=== PATIENT | female | born 1950 | race Caucasian/White ===

== ENCOUNTER 2016-08-22 06:28 | Day surgery (SDC) | payer MEDICARE, OTHER ==
[2016-08-22] VITALS (15 sets, daily range): BP systolic 129–179; BP diastolic 47–99; PULSE 66–83; TEMP 97.8–98.8
[~2016-08-22] VITALS: Ht 162.7 cm; Wt 73.5 kg
[2016-08-22 07:05] LABS: HEMATOCRIT 42.1 % (37.0-47.0); HEMOGLOBIN 13.8 g/dl (12.5-16.0); MEAN CELL VOLUME 94 fl (80.0-100.0); MEAN CORPUSCULAR HEMOGLOBIN 31 pg (27.0-31.0); MEAN CORPUSCULAR HGB CONC 33 g/dl (33.0-37.0); PLATELET COUNT 231 K/mm3 (130-400); RED BLOOD COUNT 4.47 M/mm3 (4.10-5.30); REDCELL DISTRIBUTION WIDTH-CV 12.4 % (11.5-14.5); WHITE BLOOD COUNT 4.9 K/mm3 (4.8-10.8)
[2016-08-22] MEDS ORDERED: COZAAR100 MG PO (07:06)
[2016-08-22] MEDS ORDERED: LOPRESSOR 550 MG/TAB PO ×2 (07:07→07:08)
[2016-08-22] MEDS ORDERED: AMBIEN 5MG TABLE5 MG PO (07:08)
[2016-08-22] MEDS ORDERED: ASPIRIN E.C. 8181 MG PO (07:08)
[2016-08-22] MEDS ORDERED: AMITRIPTYLINE H25 M1 PO (07:09)
[2016-08-22] MEDS ORDERED: MULTI VITAMINS1 TAB PO (07:09)
[2016-08-22] MEDS ORDERED: QUESTRAN4 GM/9 GM PO (07:11)
[2016-08-22 07:14] LABS: CREATININE, serum 0.87 mg/dL (0.52-1.25); POTASSIUM 3.7 mmol/L (3.4-5.0)
[2016-08-22] MEDS ORDERED: TIAZAC240 MG PO (13:31)
== END 2016-08-22 18:55 | disposition home or self-care (01) ==
LOC: EUO 06:28 → COL.RAD 06:30 → EUO 06:30
PROVIDERS: Internal Medicine Cardiovascular Disease
DX: I20.1 Angina pectoris with documented spasm (principal); I10 Essential (primary) hypertension; R07.9 Chest pain, unspecified; M79.603 Pain in arm, unspecified
CPT/HCPCS: C1769; C1887; C1894; J0780; J2175; J2250; J2405; J3010; Q9967